=== PATIENT | female | born 1995 | race Two or more races ===

== ENCOUNTER 2022-02-28 17:37 | Observation (INO) | payer OTHER ==
[~2022-02-28] VITALS: Ht 152.4 cm; Wt 89.4 kg
[2022-02-28] MEDS ORDERED: PNV91TAB10 PO (18:23)
[2022-02-28 19:00] VITALS: BP 114/71
[2022-02-28] MEDS ORDERED: NIFEdipine 10 MG CAPLF ONE (19:27)
[2022-02-28] MEDS ORDERED: BETAMETH ACET/BETAMETH NA PH 30 MG/5 ML VIAL IM ONE (19:28)
[2022-02-28] MEDS ORDERED: NIFEdipine 10 MG CAPLF PO SCH (19:30)
[2022-02-28] MEDS: BETAMETH ACET/BETAMETH NA PH 30 MG/5 ML VIAL IM SCH (19:31)
[2022-03-01] MEDS: NIFEdipine 10 MG CAPLF PO SCH ×4 (01:02→19:00)
[2022-03-01] MEDS ORDERED: ACETAMINOPHEN 325 MG TAB ONE (02:53)
[2022-03-01] MEDS: ACETAMINOPHEN 325 MG TAB PO PRN ×2 (03:49→14:21)
[2022-03-01] MEDS: BETAMETH ACET/BETAMETH NA PH 30 MG/5 ML VIAL IM SCH (19:02)
== END 2022-03-01 19:28 | disposition home or self-care (01) ==
LOC: MLD 17:37
PROVIDERS: ADMIT Obstetrics & Gynecology; ATTEND Obstetrics & Gynecology
DX: O62.9 Abnormality of forces of labor, unspecified (principal); Z20.822 Contact with and (suspected) exposure to COVID-19; O26.893 Other specified pregnancy related conditions, third trimester; R51.9 Headache, unspecified; Z3A.37 37 weeks gestation of pregnancy
CPT/HCPCS: 87426; 96372; G0378; J0702